=== PATIENT | male | born 1995 | race American Indian/Alaskan Native ===

== ENCOUNTER 2016-11-11 23:33 | Emergency (ER) | payer BC ==
[2016-11-11 23:45] VITALS: BP 156/70; PULSE 73; RESP 16; TEMP 98.6; O2SAT 99
--- NOTE | 2016-11-12 00:44 | ED PDOC ---
Lower Extremity Pain/Injury Time Seen by Provider: 11/11/16 23:53 Chief Complaint (Nursing): Lower Extremity Problem/Injury Chief Complaint (Provider): Left shoulder, left knee pain History Per: Patient History/Exam Limitations: no limitations Current Symptoms Are (Timing): Still Present Severity: Moderate Additional Complaint(s): Niles Florian is a 21 y/o male, with a past medical history of neurofibromatosis (along with a surgical history of back surgery to remove a lesion near the spinal cord), presenting to the ER on 11/12/2016 with complaints of left shoulder and knee pain. Patient states pain started he was at wrestling practice and was practicing "WWE" style moves with his friend. Reports he went to work and felt exacerbation of pain, prompting a visit to the ED. Denies any numbness or tingling sensation. Patient has not taken any pain medications prior to arrival. Past Medical History Reviewed: Historical Data, Nursing Documentation, Vital Signs Vital Signs: Last Vital Signs Temp 98.6 F 11/11/16 23:40 Pulse 73 11/11/16 23:40 Resp 16 11/11/16 23:40 BP 156/70 H 11/11/16 23:40 Pulse Ox 99 11/11/16 23:40 - Medical History Other PMH: neurofibromatosis - Surgical History Surgical History: Back Surgery (to remove lesion near his spinal cord ) - Family History Family History: States: Unknown Family Hx - Social History Current smoker - smoking cessation education provided: No Alcohol: None Drugs: Denies - Home Medications Home Medications: Ambulatory Orders Medication Instructions Recorded Naproxen 375 mg PO Q8 PRN #21 tab 04/29/15 diaZEpam [Valium] 5 mg PO Q6 PRN #10 tab 04/29/15 Neomycin/Polymyxin/Hydrocortis 4 drop Q8 #1 bottle 04/15/16 [Cortisporin Otic Susp] Cyclobenzaprine [Cyclobenzaprine 10 mg PO Q8H PRN #12 tab 11/12/16 HCl] Ibuprofen [Motrin Tab] 800 mg PO Q6H PRN #20 tab 11/12/16 - Allergies Allergies/Adverse Reactions: Allergies Allergy/AdvReac Type Severity Reaction Status Date / Time No Known Allergies Allergy Verified 04/15/16 18:22 Review of Systems ROS Statement: Except As Marked, All Systems Reviewed And Found Negative Constitutional: Negative for: Fever Musculoskeletal: Positive for: Shoulder Pain (left shoulder ), Leg Pain (left knee) Neurological: Negative for: Weakness, Numbness Physical Exam - Reviewed Nursing Documentation Reviewed: Yes Vital Signs Reviewed: Yes - Physical Exam Appears: Positive for: Non-toxic, No Acute Distress Head Exam: Positive for: ATRAUMATIC, NORMOCEPHALIC Skin: Positive for: Normal Color Eye Exam: Positive for: Normal appearance Neck: Positive for: Normal, Painless ROM, Supple Cardiovascular/Chest: Positive for: Regular Rate, Rhythm. Negative for: Murmur Respiratory: Positive for: Normal Breath Sounds. Negative for: Respiratory Distress Pulses-Dorsalis Pedis (L): 2+ Pulses-Dorsalis Pedis (R): 2+ Extremity: Positive for: Normal ROM, Capillary Refill (normal ), Other ( sensation intact; strength 5/5 ). Negative for: Tenderness, Deformity, Swelling Neurologic/Psych: Positive for: Alert, Oriented. Negative for: Motor/Sensory Deficits - ECG O2 Sat by Pulse Oximetry: 99 (RA) Pulse Ox Interpretation: Normal Medical Decision Making Medical Decision Makin:53 Initial Impression- Left shoulder and knee pain Initial Plan- * Flexeril 10 mg PO * Toradol 60 mg IM Pt was re-evaluated and reports improvement of pain. Pt requires no further treatment in the ED at this time. Pt will be discharged routinely with rx of flexeril and ibuprofen . Encouraged to follow up with PMD within 1-2 days. Advised to return if symptoms persist or worsen. Condition is stable upon discharge. Clinical Impression- Muscle Pain Documented by Eusebio Lopez, acting as a scribe for Sabi Hdz PA-C. All medical record entries made by the Scribe were at my direction and personally dictated by me. I have reviewed the chart and agree that the record accurately reflects my personal performance of the history, physical exam, medical decision making, and the department course for this patient. I have also personally directed, reviewed, and agree with the discharge instructions and disposition. Disposition - Clinical Impression Clinical Impression: Muscle pain - Patient ED Disposition Is Patient to be Admitted: No Counseled Patient/Family Regarding: Diagnosis, Need For Followup, Rx Given - Disposition Referrals: FAMILY PROVIDER,NO [Primary Care Provider] - [facility] [Outside] Disposition: Routine/Home Disposition Time: 00:42 Condition: STABLE Prescriptions: Cyclobenzaprine [Cyclobenzaprine HCl] 10 mg PO Q8H PRN #12 tab PRN Reason: Muscle Spasm Ibuprofen [Motrin Tab] 800 mg PO Q6H PRN #20 tab PRN Reason: Pain Instructions: Musculoskeletal Pain (ED)
== END 2016-11-12 00:57 | disposition home or self-care (01) ==
LOC: H.ER 23:33
DX: M79.1 Myalgia (principal)
CPT/HCPCS: 96372; 99282; J1885

== ENCOUNTER 2017-10-13 19:23 | Emergency (ER) | payer SELFPAY ==
[2017-10-13 19:35] VITALS: TEMP 97.7
[2017-10-13] MEDS ORDERED: Sodium Chloride 0.9% 1,000 ML IV STA (20:06)
--- NOTE | 2017-10-13 20:22 | ED PDOC ---
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 He has been taking Keppra 1000mg BID in regular basis but stopped sometime ago since he felt better, today he took the medicine and states that jerkings started just after he took the tablet. He also c/o "bright vision" and dizziness. He denies LOC, recent fever, N/V, no headaches, urinary or fecal incontinence, tongue bite, falls, abd or chest pain. (Elisabeth Ulloa) Past Medical History - Surgical History Surgical History: Back Surgery (to remove lesion near his spinal cord ) - Family History Family History: States: Unknown Family Hx <Elisabeth Ulloa - Last Filed: 10/13/17 20:39> <Jimmy Cordero - Last Filed: 10/14/17 03:54> Vital Signs: Last Vital Signs Temp 97.7 F 10/13/17 19:32 Pulse 72 10/13/17 20:32 Resp 16 10/13/17 20:32 BP 123/70 10/13/17 20:32 Pulse Ox 98 10/13/17 21:49 - Home Medications Home Medications: Ambulatory Orders Medication Instructions Recorded Naproxen 375 mg PO Q8 PRN #21 tab 04/29/15 diaZEpam [Valium] 5 mg PO Q6 PRN #10 tab 04/29/15 Neomycin/Polymyxin/Hydrocortis 4 drop Q8 #1 bottle 04/15/16 [Cortisporin Otic Susp] Cyclobenzaprine [Cyclobenzaprine 10 mg PO Q8H PRN #12 tab 11/12/16 HCl] Ibuprofen [Motrin Tab] 800 mg PO Q6H PRN #20 tab 11/12/16 Levetiracetam 1,000 mg PO BID #14 tablet 10/13/17 - Allergies Allergies/Adverse Reactions: Allergies Allergy/AdvReac Type Severity Reaction Status Date / Time No Known Allergies Allergy Verified 10/13/17 19:32 Review of Systems ROS Statement: Except As Marked, All Systems Reviewed And Found Negative <Elisabeth Ulloa - Last Filed: 10/13/17 20:39> Physical Exam - Reviewed Nursing Documentation Reviewed: Yes Vital Signs Reviewed: Yes - Physical Exam Appears: Positive for: Uncomfortable Head Exam: Positive for: ATRAUMATIC, NORMOCEPHALIC Skin: Positive for: Normal Color, Warm, Dry Eye Exam: Positive for: EOMI, PERRL. Negative for: Nystagmus ENT: Positive for: Normal ENT Inspection Neck: Positive for: Normal Cardiovascular/Chest: Positive for: Regular Rate, Rhythm. Negative for: Murmur Respiratory: Positive for: Normal Breath Sounds. Negative for: Rales, Rhonchi, Wheezing Gastrointestinal/Abdominal: Positive for: Bowel Sounds, Soft. Negative for: Tenderness Neurologic/Psych: Positive for: Alert, health information specialist II-XII, Oriented <Elisabeth Ulloa - Last Filed: 10/13/17 20:39> - Laboratory Results Result Diagrams: 10/13/17 20:32 - ECG O2 Sat by Pulse Oximetry: 98 - Progress Re-evaluation Time: 21:46 Condition: Re-examined (patient reports feels more better, sleepy, parents present in room.) <Elisabeth Ulloa - Last Filed: 10/13/17 20:39> - Laboratory Results Result Diagrams: 10/13/17 20:32 10/13/17 20:32 <Jimmy Cordero - Last Filed: 10/14/17 03:54> - Progress ED Course And Treament: cbc: wnl cmp: Creatinine Phos: wnl Keppra serum level Alcohol serum level: < 10 Mg 1.7 Prolactin IV fluids Keppra 750 mg IV once Ativan 2mg IV once (Elisabeth Ulloa) Disposition - Patient ED Disposition Is Patient to be Admitted: No - Disposition Disposition: Routine/Home Disposition Time: 21:48 - POA Present On Arrival: None <Elisabeth Ulloa - Last Filed: 10/13/17 20:39> <Jimmy Cordreo - Last Filed: 10/14/17 03:54> - Clinical Impression Clinical Impression: Pseudoseizures, Seizure disorder, Drug-induced seizure - Disposition Referrals: Mj Bailey MD [Staff Provider] - Condition: IMPROVED Prescriptions: Levetiracetam 1,000 mg PO BID #14 tablet Instructions: Seizures, Adult (DC), Seizures, Adverse Drug Reactions, Adult (DC ) Forms: [employer] (Croatian), [facility] ED School/Work Excuse Print Language: HUNGARIAN
[2017-10-13 20:36] VITALS: BP 123/70; PULSE 72; RESP 16
[2017-10-13 20:36] LABS: BASO % 0.8 % (0.0-2.0); EOS # 0.4 K/uL (0.0-0.7); EOS % 8.2 % (0.0-4.0); HEMOGLOBIN 13.3 g/dL (12.0-18.0); LYMPH % 39.8 % (20.0-40.0); MEAN CORPUSCULAR HEMOGLOBIN 27.2 pg (27.0-31.0); MEAN CORPUSCULAR HGB CONC 33.2 g/dL (33.0-37.0); MONO # 0.4 K/uL (0.0-0.8); MONO % 8.4 % (0.0-10.0); NEUT # 2.1 K/uL (1.8-7.0); NEUT % 42.8 % (50.0-75.0); NRBC % 0.2 % (0.0-0.0); RBC 4.88 Mil/uL (4.40-5.90); RED CELL DISTRIBUTION WIDTH 14.1 % (11.5-14.5)
[2017-10-13 21:01] LABS: ALB/GLOB RATIO 1.4 (1.0-2.1); ALBUMIN 4.4 g/dL (3.5-5.0); ALT/SGPT 49 U/L (21-72); AST/SGOT 34 U/L (17-59); BLOOD UREA NITROGEN 16 mg/dl (9-20); CALCIUM 9.6 mg/dL (8.4-10.2); GFR AFRICAN-AMERICAN > 60; GFR NON-AFRICAN AMERICAN > 60; MAGNESIUM 1.7 MG/DL (1.6-2.3)
[2017-10-13 21:46] VITALS: O2SAT 98
[2017-10-15 18:28] LABS: PROLACTIN 15.1 ng/mL (3.7-17.9)
== END 2017-10-13 22:13 | disposition home or self-care (01) ==
LOC: H.ER 19:23
DX: F44.5 Conversion disorder with seizures or convulsions (principal); G40.501 Epileptic seizures related to external causes, not intractable, with status epilepticus
CPT/HCPCS: 80053; 80299; 82550; 82948; 83735; 84146; 85025; 96365; 96375; 99285; G0480; J1953; J2060; J7040

== ENCOUNTER 2018-03-15 17:41 | Emergency (ER) | payer OTHER ==
[2018-03-15 17:48] VITALS: TEMP 98.2
[2018-03-15] MEDS ORDERED: levETIRAcetam 500 MG in Sodium Chloride 0.9% 100 ML IVPB ONE (18:09)
[2018-03-15 18:50] LABS: BASO % 0.8 % (0.0-2.0); EOS # 0.4 K/uL (0.0-0.7); EOS % 8.7 % (0.0-4.0); HEMOGLOBIN 13.5 g/dL (12.0-18.0); LYMPH % 40.9 % (20.0-40.0); MEAN CELL VOLUME 82.3 fl (80.0-94.0); MEAN CORPUSCULAR HEMOGLOBIN 26.8 pg (27.0-31.0); MEAN CORPUSCULAR HGB CONC 32.6 g/dL (33.0-37.0); MEAN PLATELET VOLUME 9.8 fl (7.2-11.7); MONO # 0.5 K/uL (0.0-0.8); MONO % 9.9 % (0.0-10.0); NEUT % 39.7 % (50.0-75.0); NRBC % 0.1 % (0.0-0.0); RBC 5.02 Mil/uL (4.40-5.90); RED CELL DISTRIBUTION WIDTH 14.5 % (11.5-14.5); WHITE BLOOD COUNT 4.9 K/uL (4.8-10.8)
[2018-03-15 19:01] LABS: ALB/GLOB RATIO 1.5 (1.0-2.1); ALBUMIN 4.4 g/dL (3.5-5.0); ALT/SGPT 32 U/L (21-72); AST/SGOT 24 U/L (17-59); BLOOD UREA NITROGEN 9 mg/dl (9-20); CALCIUM 9.5 mg/dL (8.4-10.2); GFR NON-AFRICAN AMERICAN > 60
[2018-03-15 19:23] LABS: BARBITURATES, UR NEGATIVE (NEGATIVE); BENZODIAZEPINES, UR NEGATIVE (NEGATIVE); OPIATES, UR NEGATIVE (NEGATIVE); PHENCYCLIDINE, UR NEGATIVE (NEGATIVE)
--- NOTE | 2018-03-15 19:47 | ED PDOC ---
HPI: Altered Mental Status Time Seen by Provider: 03/15/18 18:09 Chief Complaint (Nursing): Weakness/Neurological Deficit History Per: Patient Exacerbating Factor(s): Unknown (this is a 22 yo male with history of seizure disorder who presents for evaluation of having had a seizure 2 days ago while he was at work. Patient has had history of being noncompliance with meds. Keppra has been prescribed to him by doctors in [facility]. He takes them when he feels it is necessary. After his seizure 2 days ago, he restarted taking them. ) Past Medical History Reviewed: Historical Data, Nursing Documentation, Vital Signs Vital Signs: Last Vital Signs Temp 98.2 F 03/15/18 17:45 Pulse 73 03/15/18 18:18 Resp 17 03/15/18 18:18 BP 124/62 03/15/18 17:45 Pulse Ox 98 03/15/18 18:18 - Medical History PMH: Seizures (Pseudoseizures) - Surgical History Surgical History: Back Surgery (to remove lesion near his spinal cord ) - Family History Family History: States: Unknown Family Hx - Home Medications Home Medications: Ambulatory Orders Medication Instructions Recorded Naproxen 375 mg PO Q8 PRN #21 tab 04/29/15 diaZEpam [Valium] 5 mg PO Q6 PRN #10 tab 04/29/15 Neomycin/Polymyxin/Hydrocortis 4 drop Q8 #1 bottle 04/15/16 [Cortisporin Otic Susp] Cyclobenzaprine [Cyclobenzaprine 10 mg PO Q8H PRN #12 tab 11/12/16 HCl] Ibuprofen [Motrin Tab] 800 mg PO Q6H PRN #20 tab 11/12/16 Levetiracetam 1,000 mg PO BID #14 tablet 10/13/17 - Allergies Allergies/Adverse Reactions: Allergies Allergy/AdvReac Type Severity Reaction Status Date / Time No Known Allergies Allergy Verified 10/13/17 19:32 Review of Systems ROS Statement: Except As Marked, All Systems Reviewed And Found Negative Constitutional: Negative for: Fever Neurological: Positive for: Seizures Physical Exam - Reviewed Nursing Documentation Reviewed: Yes Vital Signs Reviewed: Yes - Physical Exam Appears: Positive for: Well, Non-toxic, No Acute Distress Head Exam: Positive for: ATRAUMATIC, NORMAL INSPECTION, NORMOCEPHALIC Skin: Positive for: Normal Color, Warm, DRY Eye Exam: Positive for: Normal appearance, EOMI, PERRL ENT: Positive for: Normal ENT Inspection Neck: Positive for: Normal, Painless ROM Cardiovascular/Chest: Positive for: Regular Rate, Rhythm Respiratory: Positive for: CNT, Normal Breath Sounds Gastrointestinal/Abdominal: Positive for: Normal Exam, Soft Back: Positive for: Normal Inspection Extremity: Positive for: Normal ROM Neurologic/Psych: Positive for: Alert, Oriented - Laboratory Results Result Diagrams: 03/15/18 18:42 03/15/18 18:42 - ECG O2 Sat by Pulse Oximetry: 98 Medical Decision Making Medical Decision Making: patient has been stable since arrival. He will need followup with a pcp and neurologist in [place]. Disposition - Clinical Impression Clinical Impression: Seizure disorder - Patient ED Disposition Is Patient to be Admitted: No Doctor Will See Patient In The: Office Counseled Patient/Family Regarding: Diagnosis, Need For Followup - Disposition Referrals: Leonard Hauser MD [Staff Provider] - Pita Barraza MD [Medical Doctor] - [facility] [place] [Outside] Disposition: Routine/Home Disposition Time: 19:30 Condition: STABLE Instructions: Epilepsy in Adults Forms: [employer] (Somali), [facility] ED School/Work Excuse - POA Present On Arrival: None
[2018-03-15 20:51] VITALS: BP 107/68; PULSE 86; RESP 19; O2SAT 99
== END 2018-03-15 20:55 | disposition home or self-care (01) ==
LOC: H.ER 17:41
DX: G40.909 Epilepsy, unspecified, not intractable, without status epilepticus (principal); Z91.14 Patient's other noncompliance with medication regimen